=== PATIENT | male | born 1985 | race Caucasian/White ===

== ENCOUNTER 2017-06-01 11:20 | Emergency (ER) | payer OTHER, MEDICAID ==
[2017-06-01 11:30] VITALS: BP 124/83
--- NOTE | 2017-06-01 11:42 | ED Physician Documentation ---
PD HPI UPPER EXT INJURY - Stated complaint Stated Complaint: THUMB LAC - Chief complaint Chief Complaint: Wound - History obtained from History obtained from: Patient - History of Present Illness Location: Left, Finger (thumb) Type of injury: Laceration Where injury occurred: Home Timing - onset: Today Timing - duration: Minutes Timing - details: Abrupt onset, Still present Improved by: Rest, Immobilization Worsened by: Moving, Palpating Similar symptoms before: Has not had sx before Recently seen: Not recently seen - Additonal information Additional information: 32 y/o male was cutting peppers with a knife and cut the tip of his thumb off. Review of Systems Constitutional: denies: Fever Respiratory: denies: Cough GI: denies: Vomiting Skin: reports: Laceration (s) Musculoskeletal: reports: Extremity pain. denies: Neck pain, Back pain Neurologic: denies: Generalized weakness, Focal weakness, Numbness PD PAST MEDICAL HISTORY - Present Medications Home Medications: Ambulatory Orders Medication Instructions Recorded Confirmed No Known Home Medications [No 06/01/17 06/01/17 Known Home Medications] - Allergies Allergies/Adverse Reactions: Allergies Allergy/AdvReac Type Severity Reaction Status Date / Time No Known Drug Allergies Allergy Verified 06/01/17 11:30 PD ED PE NORMAL - Vitals Vital signs reviewed: Yes (hypertensive) - General General: Alert and oriented X 3, No acute distress, Well developed/nourished - HEENT HEENT: Atraumatic, PERRL - Respiratory Respiratory: No respiratory distress - Derm Derm: Normal color, Warm and dry, No rash - Extremities Extremities: No deformity, Other (There is a skiv of skin missing from the tip of the left thumb about 1cm oval shaped. ) - Neuro Neuro: No motor deficit, No sensory deficit Eye Opening: Spontaneous Motor: Obeys Commands Verbal: Oriented GCS Score: 15 - Psych Psych: Normal mood, Normal affect Results - Vitals Vitals: Vital Signs - 24 hr 06/01/17 11:24 Temperature 36.5 C Heart Rate 74 Respiratory 16 Rate Blood Pressure 124/83 H O2 Saturation 100 Oxygen O2 Source Room air PD MEDICAL DECISION MAKING - ED course Complexity details: considered differential, d/w patient, d/w family ED course: 30-year-old male with a skin avulsion from a knife injury was treated conservatively with Gelfoam and Coban. Departure - Departure Disposition: 01 Home, Self Care Clinical Impression: Avulsion, skin Condition: Stable Instructions: ED Avulsion Dermal Follow-Up: [facility] [Provider Group]
== END 2017-06-01 11:57 | disposition home or self-care (01) ==
LOC: ED 11:20
DX: S61.012A Laceration without foreign body of left thumb without damage to nail, initial encounter (principal); W26.0XXA Contact with knife, initial encounter; Y92.89 Other specified places as the place of occurrence of the external cause; Y99.0 Civilian activity done for income or pay; Y93.G1 Activity, food preparation and clean up; I10 Essential (primary) hypertension
CPT/HCPCS: 1040M; 99282; 99283

== ENCOUNTER 2019-03-01 16:26 | Emergency (ER) | payer MEDICAID ==
--- NOTE | 2019-03-01 16:55 | ED Physician Documentation ---
History of Present Illness - Stated complaint Stated Complaint: LT LEG SWELLING/PX - Chief complaint Chief Complaint: Ext Problem - History obtained from History obtained from: Patient, Family - History of Present Illness Pain level max: 4 Pain level now: 3 - Additonal information Additional information: 33-year-old male states that for the past 2 weeks he has noted redness and swelling to the posterior aspect of his left thigh. Nothing makes it better or worse. No fevers. No injury. Saw his doctor today who sent him here for po ssible DVT. He does not have a swelling further down in the leg. Does not recall any trauma. Does not use IV drugs. No fevers. Review of Systems Constitutional: denies: Fever Throat: denies: Sore throat Skin: denies: Rash Musculoskeletal: denies: Neck pain, Back pain Neurologic: denies: Headache PD PAST MEDICAL HISTORY - Past Medical History Past Medical History: Yes Musculoskeletal: Scoliosis - Past Surgical History Past Surgical History: No - Present Medications Home Medications: Ambulatory Orders Medication Instructions Recorded Confirmed No Known Home Medications 06/01/17 03/01/19 - Allergies Allergies/Adverse Reactions: Allergies Allergy/AdvReac Type Severity Reaction Status Date / Time Penicillins Allergy Unknown Verified 03/01/19 16:36 - Social History Does the pt smoke?: No Smoking Status: Never smoker Does the pt drink ETOH?: Yes ETOH Use: Beer, Liquor Does the pt have substance abuse?: No PD ED PE NORMAL - Vitals Vital signs reviewed: Yes - General General: Alert and oriented X 3, No acute distress - HEENT HEENT: Moist mucous membranes - Neck Neck: Supple, no meningeal sign - Derm Derm: Warm and dry - Extremities Extremities: Other (Normal examination of the left knee itself. There is a 6 x 6 cm area of erythema and induration of the posterior aspect of the left distal thigh. Neurovascular intact. No calf tenderness or cord. No joint effusion. Full range of motion of the knee without pain) - Neuro Neuro: Alert and oriented X 3 Results - Vitals Vitals: Vital Signs - 24 hr 03/01/19 03/01/19 16:31 18:56 Temperature 37.6 C H 37.3 C Heart Rate 95 88 Respiratory 19 16 Rate Blood Pressure 145/106 H 132/85 H O2 Saturation 99 98 Oxygen O2 Source Room air - Labs Labs: Laboratory Tests 03/01/19 03/01/1920 17:27 17:27 17:27 WBC 10.8 RBC 4.46 L Hgb 13.2 L Hct 39.8 L MCV 89.2 MCH 29.6 MCHC 33.2 RDW 12.1 Plt Count 335 MPV 8.8 Neut # (Auto) 8.1 H Lymph # (Auto) 1.6 Sherman # (Auto) 0.7 Eos # (Auto) 0.3 Baso # (Auto) 0.1 Absolute Nucleated RBC 0.00 Nucleated RBC % 0.0 ESR 25 H Sodium 139 Potassium 3.7 Chloride 101 Carbon Dioxide 27 Anion Gap 11.0 BUN 17 Creatinine 1.0 Estimated GFR (MDRD) 86 L Glucose 113 H Calcium 8.7 C-Reactive Protein 3.6 H - Rads (name of study) Duplex ultrasound left lower extremity Radiology: Prelim report reviewed, EMP read contemporaneously, See rad report (1. Negative for DVT at this time. 2. Multiple soft tissue lesions in the thigh, mostly cystic. Further characterization with MR scan may be helpful. ) PD MEDICAL DECISION MAKING - ED course Complexity details: reviewed results, re-evaluated patient, considered differential, d/w patient ED course: 33-year-old male with 2 weeks of left thigh posterior soft tissue swelling. No DVT on ultrasound. There are multiple soft tissue lesions in the thigh, mostly cystic. No leukocytosis. Minimal elevation of the CRP and sed rate. Abscesses for 2 weeks would seem unlikely clinically. We will have him follow-up with his doctor tomorrow for an MRI of the leg. Possible that this represents a ruptured Haque's cyst? Patient ambulating well. Patient counseled regarding signs and symptoms for which I believe and urgent re-evaluation would be necessary. Patient with good understanding of and agreement to plan and is comfortable going home at this time This document was made in part using voice recognition software. While efforts are made to proofread this document, sound alike and grammatical errors may occur. Departure - Departure Disposition: 01 Home, Self Care Clinical Impression: Leg swelling Condition: Good Follow-Up: Danny Berrios MD [Primary Care Provider] - Tomorrow Comments: You need to follow-up with your doctor tomorrow to have an MRI ordered and performed on your leg to see what the cystic structures are. Return if you worsen. IMPRESSION: 1. Negative for DVT at this time. 2. Multiple soft tissue lesions in the thigh, mostly cystic. Further characterization with MR scan may be helpful. Discharge Date/Time: 03/01/19 19:45
[2019-03-01 17:34] LABS: BASOPHILS # (AUTO) 0.1 10^3/uL (0.0-0.1); BASOPHILS % (AUTO) 0.6 %; EOSINOPHILS # (AUTO) 0.3 10^3/uL (0.0-0.7); EOSINOPHILS % (AUTO) 2.5 %; HGB - HEMOGLOBIN 13.2 g/dL (14.0-18.0); LYMPHOCYTES # (AUTO) 1.6 10^3/uL (1.5-3.5); LYMPHOCYTES % (AUTO) 14.8 %; MEAN CORPUSCULAR HEMOGLOBIN 29.6 pg (27.0-31.0); MEAN CORPUSCULAR HGB CONC 33.2 g/dL (32.0-36.0); MEAN CORPUSCULAR VOLUME 89.2 fL (80.0-94.0); MEAN PLATELET VOLUME 8.8 fL (7.4-11.4); MONOCYTES # (AUTO) 0.7 10^3/uL (0.0-1.0); MONOCYTES % (AUTO) 6.8 %; NEUTROPHILS # (AUTO) 8.1 10^3/uL (1.5-6.6); NEUTROPHILS % (AUTO) 74.9 %; PLT - PLATELET COUNT 335 10^3/uL (130-450); RED BLOOD COUNT 4.46 10^6/uL (4.70-6.10); RED CELL DISTRIBUTION WIDTH 12.1 % (12.0-15.0); WHITE BLOOD COUNT 10.8 x10^3/uL (4.8-10.8)
[2019-03-01 17:51] LABS: CALCIUM 8.7 mg/dL (8.5-10.3); CRP - C-REACTIVE PROTEIN 3.6 mg/dL (0-1.0)
[2019-03-01 18:56] VITALS: BP 132/85
--- NOTE | 2019-03-01 19:02 | Ultrasound Report ---
Reason: LLE swelling Procedure Date: 03/01/2019 Accession Number: [id number] / [id number] Procedure: US - Duplex Ext Veins Left CPT Code: Final Report FULL RESULT: EXAM: LEFT LOWER EXTREMITY VENOUS ULTRASOUND EXAM DATE: 03/01/2019 06:22 PM. CLINICAL HISTORY: LLE swelling. COMPARISON: None. TECHNIQUE: Real-time sonographic vascular imaging was performed by the foreign service teacher through the lower extremity utilizing both color-flow and Doppler spectral analysis. Multiple business development representative static images were saved for review. FINDINGS: Common Femoral Vein (CFV): Normal. CFV-GSV Junction: Normal. Profunda Femoral Vein (PFV): Normal. Femoral Vein (FV) Prox: Normal. Femoral Vein (FV) Mid: Normal. Femoral Vein (FV) Dist: Normal. Popliteal Vein: Normal. Posterior Tibial Veins: Normal. Peroneal Veins: Normal. Contralateral Side CFV: Normal. Other: Septated cystic structure at level of pain in medial thigh measuring 5.7 x 3.6 x 1.6 cm. Additional cystic lesion more laterally measuring 5.6 x 1.6 x 1.4 cm. Adjacent tender hypoechoic nodule measuring about 1.1 x 0.7 cm, probably a lymph node. IMPRESSION: 1. Negative for DVT at this time. 2. Multiple soft tissue lesions in the thigh, mostly cystic. Further characterization with MR scan may be helpful. RADIA
== END 2019-03-01 19:45 | disposition home or self-care (01) ==
LOC: ED 16:26
DX: R22.42 Localized swelling, mass and lump, left lower limb (principal); L72.8 Other follicular cysts of the skin and subcutaneous tissue
CPT/HCPCS: 36415; 80048; 85025; 85651; 86140; 99284

== ENCOUNTER 2019-10-22 15:53 | Outpatient (CLI) | payer MEDICAID ==
[2019-10-22] MEDS ORDERED: GADOBUTROL 10 MMOL/10 ML VIAL ONE (16:59)
[2019-10-22] MEDS: GADOBUTROL 10 MMOL/10 ML VIAL IVP ONE (17:08)
--- NOTE | 2019-10-23 13:12 | MRI Report ---
PROCEDURE: Femur/Thigh LT W/WO INDICATIONS: NEOPLASM OF UNCERTAIN BEHAVIOR OF CONNCTV/SOFT TIS CONTRAST: IV CONTRAST: Gadavist ml: 8.5 TECHNIQUE: Noncontrast sagittal T1 spin echo and T2 fast spin echo with fat saturation, long-axis T1 spin echo a nd T2 fast spin echo with fat saturation; short-axis T1 spin echo, proton density fast spin echo, and T2 fast spin echo with fat saturation through the left thigh. Post-contrast short axis, long axis, and sagittal T1 spin echo with fat saturation through the left thigh. COMPARISON: None. FINDINGS: Image quality: Excellent. Bones and joints: There is no marrow edema. No fracture or dislocation. No suspicious intraosseous le rey. No cortical erosion or periosteal reaction. No abnormal intraosseous enhancement. Soft tissues: No suspicious soft tissue enhancement. The visualized plantar foot muscles demonstrat e normal signal and bulk. No intramuscular fluid collection or hematoma. Incidentally noted of a righ t-sided popliteal cyst is seen. IMPRESSION: 1. No soft tissue mass or area of abnormal enhancement. No intramuscular mass or fluid collection. Ri ght-sided popliteal cyst. 2. No marrow signal abnormality is seen. No fracture or dislocation. No abnormal intraosseous enhance ment or lesion. Reviewed by: Justo Anthony MD on 10/23/2019 1:11 PM PDT Approved by: Justo Anthony MD on 10/23/2019 1:11 PM PDT Station ID: [id number]
== END 2019-10-22 15:54 | disposition home or self-care (01) ==
LOC: DI 15:53
PROVIDERS: ATTEND Internal Medicine
DX: M71.22 Synovial cyst of popliteal space [Baker], left knee (principal)
CPT/HCPCS: 73720; A9585

== ENCOUNTER 2019-11-09 12:39 | Outpatient (CLI) | payer MEDICAID ==
--- NOTE | 2019-11-09 14:24 | XRAY Report ---
PROCEDURE: Knee 3 View BILAT INDICATIONS: KNEE JOINT INSTABILITY TECHNIQUE: 3 views of the bilateral knee(s) were acquired. COMPARISON: None. FINDINGS: Bones: No fractures or dislocations. No suspicious bony lesions. There is a mild degree of medial c ompartment knee joint space narrowing bilaterally and a mild degree of lateral compartment right knee joint space narrowing indicating asymmetric right greater than left degenerative osteoarthritis. Thi s is associated with elevation and lateral deviation of the patella at the trochlear groove on the le ft on the patellar sunrise evaluation. Soft tissues: Asymmetric mild to moderate left knee joint effusion. No suspicious soft tissue calcif ications. 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 Asymmetric mild to moderate knee joint effusion on the left seen on the lateral view and also associ ated with lateral deviation of the left patella at the trochlear groove. Given this finding follow-up assessment may be warranted for recent trauma and MR scanning may be indicated depending on the clin ical status. Reviewed by: Kin Arroyo MD on 11/09/2019 2:23 PM PDT Approved by: Kin Arroyo MD on 11/09/2019 2:23 PM PDT Station ID: [id number]
== END 2019-11-09 12:40 | disposition home or self-care (01) ==
LOC: DI.S 12:39
PROVIDERS: ATTEND Registered Nurse
DX: M25.361 Other instability, right knee (principal); M25.362 Other instability, left knee; M17.0 Bilateral primary osteoarthritis of knee

== ENCOUNTER 2020-01-07 10:44 | Outpatient (CLI) | payer MEDICAID ==
--- NOTE | 2020-01-07 16:47 | XRAY Report ---
PROCEDURE: Knee 4 View BILAT INDICATIONS: KNEE JOINT INSTABILITY TECHNIQUE: 4 views of the bilateral knee(s) were acquired. COMPARISON: X-ray knee 11/09/2019 FINDINGS: Bones: No fractures or dislocations. No suspicious bony lesions. Mild bilateral medial as well as mild to moderate right and minimal to mild left lateral compartment narrowing is present. Mild patell ofemoral compartment narrowing is present. Minimal periarticular osteophytes are present. Previously noted appearance of deviation of the left patella is less prominent on current exam. Soft tissues: Minimal bilateral joint effusion. No suspicious soft tissue calcifications. IMPRESSION: Stable appearance of osteoarthritic changes. Previous left patellar deviation is less pr ominent. If clinical concern persists, MRI is recommended for evaluation of ligamentous instability. Reviewed by: Maude Goodrich MD on 01/07/2020 4:46 PM PST Approved by: Maude Goodrich MD on 01/07/2020 4:46 PM PST Station ID: [id number]
== END 2020-01-07 23:59 | disposition home or self-care (01) ==
LOC: DI.N 10:44
PROVIDERS: ATTEND Orthopaedic Surgery
DX: M25.362 Other instability, left knee (principal); M25.361 Other instability, right knee; M17.0 Bilateral primary osteoarthritis of knee